=== PATIENT | female | born 1990 | race Caucasian/White ===

== ENCOUNTER 2016-09-12 15:32 | Emergency (ER) | payer BC ==
[~2016-09-12] VITALS: Ht 157.5 cm; Wt 81.6 kg
[2016-09-12 15:45] VITALS: BP 142/98
--- NOTE | 2016-09-12 15:50 | Emergency Room Report ---
History of Present Illness General Chief Complaint: Laceration Source: Patient Present Illness HPI Patient is a 26-year-old female who presented after a right hand injury in which she injured her right small finger. Injury occurred just prior to arrival. 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 Allergies: Coded Allergies: No Known Allergies (Unverified , 09/12/16) Patient History Past Medical History: see triage record Last Menstrual Period: Aug Now: No Reviewed Nursing Documentation: PMH: Agreed, PSxH: Agreed Nursing Documentation-PMH Past Medical History: No Stated History Review of Systems All Other Systems: negative except mentioned in HPI Physical Exam Vital Signs Date Time Temp Pulse Resp B/P Pulse Ox O2 Delivery O2 Flow Rate FiO2 09/12/16 15:39 97.5 71 15 142/98 98 Room Air General Appearance: well appearing, no apparent distress, alert, GCS 15 Head: normocephalic, atraumatic ENT: hearing grossly normal, normal voice Neck: full range of motion, supple Respiratory: no respiratory distress, speaking full sentences Gastrointestinal: normal inspection, normal bowel sounds, non tender, soft Musculoskeletal: normal inspection, no calf tenderness Neurologic: normal inspection, alert, oriented x3, responsive, jetting machine operator III-XII nml as tested, normal gait Psychiatric: mood/affect normal Skin: no rash, other - laceration 1cm flap over right small finger dorsum Procedures Laceration/Wound Repair Laceration/Wound Repair : Consent: Verbal Wound Location: upper extremity Wound's Depth, Shape: flap Wound Length (cm): 1 Wound Explored: clean Irrigated w/ Saline (ccs): 10 Betadine Prep?: Yes Anesthesia: 1% Lidocaine Volume Anesthetic (ccs): 1 Wound Debrided: minimal Wound Repaired With: sutures Suture Size/Type: 5:0, other - gut Number of Sutures: 3 Layer Closure?: No Sterile Dressing Applied?: Yes Splint Applied?: Yes Patient Tolerated: Well Complications: None Medical Decision Making Diagnostic Impression: Primary Impression: Laceration ER Course Patient presented for laceration.Patient presented for laceration. Differential diagnoses included foreign body, nerve injury, arterial injury among others. Patient's benign exam and does not appear to require any further imaging or laboratory testing at this time. The laceration was repaired with his absorbable suture. The patient is advised to follow up with primary care doctor for wound check in 3-4 days. Patient is advised to return if any worsening condition or if any changes in status that are concerning. Last Vital Signs Date Time Temp Pulse Resp B/P Pulse Ox O2 Delivery O2 Flow Rate FiO2 09/12/16 15:39 97.5 71 15 142/98 98 Room Air Status: improved Disposition: HOME, SELF-CARE Condition: Stable Scripts Bacitracin Zinc* (BACITRACIN ZINC*) 1 Each Packet 1 APPLIC TOPIC THREE TIMES A DAY, #20 PACKET Prov: Az Shine 09/12/16 Az Shine Sep 12, 2016 15:50
[2016-09-12] MEDS ORDERED: Lidocaine 1% MPF 10mg/ml 5ml IM ONE (16:00)
[2016-09-12] MEDS ORDERED: BACITRACIN ZIN1 EACH TOPIC (16:12)
[2016-09-12] MEDS ORDERED: Bacitracin Oint UD TOPIC ONE (16:12)
[2016-09-12 16:20] VITALS: BP 142/98
== END 2016-09-12 16:20 | disposition home or self-care (01) ==
LOC: EMR 15:49
DX: S61.216A Laceration without foreign body of right little finger without damage to nail, initial encounter (principal); W45.8XXA Other foreign body or object entering through skin, initial encounter; Y92.9 Unspecified place or not applicable